=== PATIENT | female | born 1995 | race Caucasian/White ===

== ENCOUNTER 2020-08-06 22:59 | Emergency (ER) | payer MEDICAID, SELFPAY ==
[2020-08-06 23:24] VITALS: BP 115/67; PULSE 71; RESP 16; TEMP 35.8; O2SAT 100; BMI 19.7
--- NOTE | 2020-08-06 23:48 | ED.PREGNANCY ---
HPI - General Chief complaint: Vaginal Bleeding Stated complaint: BLEEDING Time Seen by Provider: 08/06/20 23:40 Source: patient Mode of arrival: ambulatory History of Present Illness HPI Narrative: 25-year-old female states recently now with vaginal bleeding. Spotting. No clots. No abdominal pain no back pain. No nausea no vomiting no dizziness no syncope history of Rh positive last normal menstrual period June 27 approximately 5 weeks and 5 days MD Complaint: vaginal bleeding Onset (ago): hour(s) ( 2 hours) Pain Consistency: constant Severity: moderate Severity scale (1-10): 3 Vaginal discharge: none Vaginal bleeding: light OB History - Current : no complications Related Data Allergies Allergy/AdvReac Type Severity Reaction Status Date / Time No Known Allergies Allergy Unknown UNKNOWN Unverified 07/20/20 16:46 [NO KNOWN ALLERGIES] Review of Systems Review of Systems: Constitutional : No Weight loss, No Fever, No Chills, No Night Sweats, No Fatigue, No Malaise ENT/Mouth : No Hearing loss, No Ear Pain, No Nasal Congestion, No Sinus Pain, No Hoarseness, No sore throat, No Rhinorrhea, No Swallowing Difficulty Eyes: No Eye Pain, No Swelling, No Redness, No Foreign Body, No Discharge, No Vision Changes Cardiovascular : No Chest Pain, No SOB, No Dyspnea on Exertion, No Orthopnea, No Edema, No Palpitations Respiratory : No Cough, No Sputum, No Wheezing, No Smoke Exposure, No Dyspnea Gastrointestinal : No Nausea, No Vomiting, No Diarrhea, No Constipation, No abdominal Pain, No Hematochezia, No Melena Genitourinary : no irregular bleeding, No Dysuria, No Urinary Frequency, No Hematuria, No Urinary Incontinence, No Urgency, No Flank Pain, No Urinary Flow Changes, No Hesitancy Musculoskeletal : No joint pain, No Myalgias, No Joint Swelling Skin : No Skin Lesions, No rash Neuro : No Weakness, No Numbness, No Paresthesias, No Loss of Consciousness, No Dizziness, No Headache Psych : No Anxiety/Panic, No Depression, No SI/HI/AH/VH, No Social Issues, Heme/Lymph: No Bruising, No Bleeding,No Lymphadenopathy Endocrine : No Polyuria, No Polydipsia, No Temperature Intolerance PMF Past Medical History Attestation statement: The following information was validated with the patient. Medical History (Updated 08/06/20 @ 23:52 by Deonte العلي DO) No known health problems Social History Social History Smoking Status: Never smoker Smoked in Last 30 Days: No Use of substances other than those prescribed or required for medical reasons: No Physical Exam Vital Signs and I&O and Narrative: Vital Signs and I&O: Vital Signs Temp 96.5 F L 08/06/20 23:24 Pulse 71 08/06/20 23:24 Resp 16 08/06/20 23:24 BP 115/67 08/06/20 23:24 Pulse Ox 100 08/06/20 23:24 Intake & Output 08/06/20 08/06/20 08/07/20 06:59 18:59 06:59 Weight 55.338 kg Body Mass Index 19.7 vital signs noted Const: Other: Appearance: Alert. Oriented X3. No acute distress. Eyes: Pupils equal, round and reactive to light. ENT: Pharynx normal. Neck: Normal inspection. Neck supple. CVS: Normal heart rate and rhythm. Pulses normal. Respiratory: No respiratory distress. Breath sounds normal. Abdomen: Soft and nontender. no mass, no lesions no peritonitis Skin: Skin warm and dry. Normal skin color. Normal skin turgor. Extremities: No lower extremity edema. No lower extremity edema. Neuro: Oriented X 3. No motor deficit. No sensory deficit. pelvic exam deferred secondary to ultrasound General: cooperative and healthy appearing Course Course Hospital Course: differential diagnosis includes ectopic UTI normal threatened
--- NOTE | 2020-08-07 | US_ITS ---
EXAMINATION: ULTRASOUND FIRST TRIMESTER CLINICAL INFORMATION: Vaginal bleeding. .. COMPARISON: None. TECHNIQUE: Transabdominal and transvaginal imaging of the pelvis was performed. Transvaginal imaging was performed for further evaluation of the endometrium and adnexa. FINDINGS: A normal gravid uterus is identified. A gestational sac is identified with a very small pole measuring between 1 and 2 mm. Dating is neither accurate at this age. This is concordant with the age by dates of 5 weeks 6 days for an KRISTAL of 04/03/2020. A normal heart rate is not identified. Both ovaries are of normal size and echogenicity. The right measures 2.3 x 1.2 x 1.3 cm. The left measures 3.4 x 1.9 x 2.1 cm. This measurement includes an approximately 10 mm cyst. Left adnexal vasculature is prominent. There is a small amount of pelvic free fluid. IMPRESSION: Intrauterine gestational sac identified. There is a very small pole identified within the gestational sac measuring between 1 and 2 mm. dating the ultrasound is not accurate at this early age. A heart beat is not identified, though one is not necessarily present and demonstrable the ultrasound at this early age. Continued follow-up is warranted.
[2020-08-07] MEDS: 0.9 % Sodium Chloride 1,000 ML 999 ML IVCONT (00:05)
[2020-08-07 00:07] VITALS: BP 99/55; PULSE 69; RESP 18; TEMP 37.1; O2SAT 100
[2020-08-07 00:16] LABS: MANUAL DIFF FLAG NO
[2020-08-07 00:18] LABS: Basophils Absolute Auto 0.1 X10*3/uL (0.0-0.2); Eosinophils Absolute Auto 0.4 X10*3/uL (0.0-0.4); Eosinophils Percent Auto 5.6 % (0-4); Hematocrit 34.9 % (37-47); Hemoglobin 11.7 g/dl (12.0-16.0); Imm Gran Abs Auto 0.01 X10*3/uL (0.00-0.03); Imm Gran Pct Auto 0.2 % (0.0-0.4); Lymphocytes Absolute Auto 3.4 X10*3/uL (1.2-4.9); Lymphocytes Percent Auto 53.8 % (20-40); Mean Corpuscular HGB Conc 33.5 g/dl (31.0-35.0); Mean Corpuscular Volume 92.6 fL (80-98); Mean Platelet Volume 9.9 fL (9.4-12.3); Monocytes Absolute Auto 0.4 X10*3/uL (0.1-1.2); Monocytes Percent Auto 6.7 % (2-11); Neutrophils Absolute Auto 2.1 X10*3/uL (2.0-8.3); Neutrophils Percent Auto 32.7 % (45-73); Platelet Count 194 X10*3/uL (160-400); Red Blood Count 3.77 X10*6/uL (4.20-5.50); Red Cell Distribution Width 12.2 % (11.0-16.0); White Blood Count 6.3 X10*3/uL (4.8-10.8)
[2020-08-07 00:22] LABS: Glucose Urine UA NEG (NEG); Leukocyte Esterase Urine NEG (NEG); Nitrite Urine NEG (NEG); PH 5.5 (5.0-8.0); Specific Gravity - Urine 1.025 (1.005-1.025); Urine Blood 2+ (NEG); Urine Ketones NEG (NEG); Urine Protein NEG (NEG-TRACE)
[2020-08-07 00:23] LABS: Appearance Urine CLEAR; Color Urine YELLOW
[2020-08-07 00:24] LABS: UPreg QC Valid YES; Urine Pregnancy POSITIVE (NEGATIVE)
[2020-08-07 00:42] LABS: Mucus Urine 2+ /LPF; RBC Urine 0 /HPF (0); Squamous Epithelial Cell Urine 2+ /LPF; WBC Urine 0-2 /HPF (0-4)
[2020-08-07 01:23] LABS: Anion Gap 9 (12-20); Blood Urea Nitrogen 9 mg/dL (9-16); Calcium 7.8 mg/dL (8.4-10.2); Carbon Dioxide 22 mmol/L (22-29); Chloride 108 mmol/L (96-108); Creatinine Clr Calc Pharmacy 115.5; Estimated Glomerular Filt Rate > 60; Glucose Random 82 mg/dL (60-115); Potassium 3.9 mmol/l (3.3-5.1); Sodium 135 mmol/L (135-145)
[2020-08-07 01:51] LABS: HCG Quantitative 29353 mIU/mL
[2020-08-07 02:00] VITALS: BP 102/51; PULSE 66; RESP 18; O2SAT 100
== END 2020-08-07 02:18 | disposition home or self-care (01) ==
PROVIDERS: Emergency Provider Emergency Medicine
DX: O20.9 Hemorrhage in early pregnancy, unspecified (principal); Z3A.01 Less than 8 weeks gestation of pregnancy
CPT/HCPCS: 36415; 76801; 76817; 80048; 81001; 81025; 84702; 85025; 96360; 99284

== ENCOUNTER 2020-08-13 09:42 | Emergency (ER) | payer MEDICAID, SELFPAY ==
[2020-08-13 09:56] VITALS: BP 105/65; PULSE 78; RESP 14; TEMP 36.6; O2SAT 99; BMI 19.8
--- NOTE | 2020-08-13 10:15 | ED.FEMALEGU ---
HPI - Female Genitourinary General Chief complaint: Vaginal Bleeding Stated complaint: vaginal bleeding 6 weeks Time Seen by Provider: 08/13/20 10:05 Source: patient Mode of arrival: ambulatory Limitations: no limitations History of Present Illness HPI Narrative: this is a 25 years old female who presented to the Emergency Department with a chief complaint of vaginal bleeding, she is a she has a intrauterine by ultrasound MD elicited complaint: vaginal bleeding Onset (ago): day(s) (1) Location of symptoms: vaginal Severity: moderate Quality of pain: cramping Consistency: constant Exacerbating factors: none Relieving factors: none Treatment prior to arrival: none Sexual activity: Yes Patient : Yes Related Data : 2 Para: 1 Allergies Allergy/AdvReac Type Severity Reaction Status Date / Time No Known Allergies Allergy Unknown UNKNOWN Unverified 07/20/20 16:46 [NO KNOWN ALLERGIES] Review of Systems Review of Systems: Yes all other systems are reviewed and are negative PMFSH Past Medical History Medical History Hypothyroid No known health problems : 2 Para: 1 Social History Social History Alcohol intake: never Smoking Status: Never smoker Use of substances other than those prescribed or required for medical reasons: No Advance Directives: No Advance Directives Information Provided: No Physical Exam Vital Signs: Vital Signs: Vital Signs Temp Pulse Resp BP Pulse Ox 08/13/20 11:21 72 16 94/61 99 08/13/20 09:56 98 F 78 14 105/65 99 Body Mass Index 19.8 Const: General: cooperative and healthy appearing HENMT: Other: within normal limits Neck: Neck: Yes normal visual inspection Chest: Chest palpation & inspection: normal inspection of the chest and normal palpation of entire chest wall Resp: Effort & Inspection: normal respiratory effort Cardio: Jugular venous distension: no JVD and JVD Palpation: normal PMI Rate: regular rate GI: Inspection: Yes normal to inspection Percussion: Yes normal to percussion Skin: General skin exam: no rashes or lesions noted Course Course Course Narrative: ultrasound showed alive IUP she is Rh positive okay to d/c home MDM - Female Genitourinary Lab Data Result diagrams: 08/13/20 10:21 08/13/20 10:21 Labs: Lab Results 08/13/20 08/13/20 Range/Units 10:21 10:21 WBC 5.0 (4.8-10.8) X10*3/uL RBC 3.67 L (4.20-5.50) X10*6/uL Hgb 11.3 L (12.0-16.0) g/dl Hct 34.0 L (37-47) % MCV 92.6 (80-98) fL MCH 30.8 (27.0-33.0) pg MCHC 33.2 (31.0-35.0) g/dl RDW 12.1 (11.0-16.0) % Plt Count 191 (160-400) X10*3/uL MPV 9.4 (9.4-12.3) fL Immature Gran % (Auto) 0.2 (0.0-0.4) % Neut % (Auto) 45.1 (45-73) % Lymph % (Auto) 43.1 H (20-40) % [place] % (Auto) 6.0 (2-11) % Eos % (Auto) 4.2 H (0-4) % Baso % (Auto) 1.4 (0-2) % Lymph # (Auto) 2.1 (1.2-4.9) X10*3/uL [place] # (Auto) 0.3 (0.1-1.2) X10*3/uL Eos # (Auto) 0.2 (0.0-0.4) X10*3/uL Baso # (Auto) 0.1 (0.0-0.2) X10*3/uL Abs Immat Gran (auto) 0.01 (0.00-0.03) X10*3/uL Absolute Neuts (auto) 2.2 (2.0-8.3) X10*3/uL Absolute Nucleated RBC 0.000 (0.0-0.012) X10*3/uL Nucleated RBC % (auto) 0.0 (0.0-0.2) /100WBC Sodium 136 (135-145) mmol/L Potassium 4.0 (3.3-5.1) mmol/l Chloride 105 (96-108) mmol/L Carbon Dioxide 24 (22-29) mmol/L Anion Gap 11 L (12-20) BUN 11 (9-16) mg/dL Creatinine 0.68 (0.5-1.4) mg/dL Estim Creat Clear Calc 111.4 Estimated GFR > 60 Random Glucose 75 (60-115) mg/dL Calcium 8.8 (8.4-10.2) mg/dL Total Bilirubin 2.3 H (0.0-1.0) mg/dL AST 12 (5-31) U/L ALT 12 (0-31) U/L Alkaline Phosphatase 66 (39-117) U/L Total Protein 6.4 L (6.5-8.0) g/dL Albumin 4.2 (3.5-5.0) g/dL Beta HCG, Quant [id number] mIU/mL Imaging Data ultrasound : Attestation: I personally reviewed and interpreted this imaging study as follows: Radiologist's impression: s was performed using a transvaginal transducer. FINDINGS: The uterus is retroflexed. No evidence of uterine mass. Within the endometrial cavity, there is a well-formed gestational sac containing a single pole and normal 0.3 cm diameter yolk sac. No subchorionic hemorrhage. The pole has a crown-rump length of 0.73 cm, corresponding to an estimated gestational age of 6 weeks, 5 days. The heart rate is 127 bpm. The ultrasound determined estimated date of delivery is 04/03/2021. The right ovary is not identified. The left ovary has normal size and echotexture. It measures 3.5 x 2.3 x 1.4 cm. No ovarian mass or torsion. No pelvic free fluid. IMPRESSION: No acute abnormalities. Single viable intrauterine gestation is observed. The estimated gestational age is 6 weeks, 5 days. Discharge Plan Discharge Clinical Impression: Threatened Patient Disposition: Home, Self-Care Instructions: Threatened Miscarriage (ED) Additional Instructions: Please follow-up with your OBGYN provider call Tomorrow to make an appointment, return if he worse Referrals: [facility] [Primary Care Provider] - 3 days Stand Alone Forms: Work/School Release
[2020-08-13 10:26] LABS: Basophils Absolute Auto 0.1 X10*3/uL (0.0-0.2); Basophils Percent Auto 1.4 % (0-2); Eosinophils Absolute Auto 0.2 X10*3/uL (0.0-0.4); Eosinophils Percent Auto 4.2 % (0-4); Hemoglobin 11.3 g/dl (12.0-16.0); Imm Gran Abs Auto 0.01 X10*3/uL (0.00-0.03); Imm Gran Pct Auto 0.2 % (0.0-0.4); Lymphocytes Absolute Auto 2.1 X10*3/uL (1.2-4.9); Lymphocytes Percent Auto 43.1 % (20-40); MANUAL DIFF FLAG NO; Mean Corpuscular HGB Conc 33.2 g/dl (31.0-35.0); Mean Corpuscular Hemoglobin 30.8 pg (27.0-33.0); Mean Corpuscular Volume 92.6 fL (80-98); Mean Platelet Volume 9.4 fL (9.4-12.3); Monocytes Absolute Auto 0.3 X10*3/uL (0.1-1.2); Neutrophils Absolute Auto 2.2 X10*3/uL (2.0-8.3); Neutrophils Percent Auto 45.1 % (45-73); Platelet Count 191 X10*3/uL (160-400); Red Blood Count 3.67 X10*6/uL (4.20-5.50); Red Cell Distribution Width 12.1 % (11.0-16.0)
--- NOTE | 2020-08-13 10:34 | US_ITS ---
EXAMINATION: US OB LESS THAN 14 WEEKS FETUS CLINICAL INFORMATION: Vaginal bleeding. COMPARISON: Pelvic ultrasound from 08/07/2020. TECHNIQUE: Sonographic imaging of the pelvis was performed using a transvaginal transducer. FINDINGS: The uterus is retroflexed. No evidence of uterine mass. Within the endometrial cavity, there is a well-formed gestational sac containing a single pole and normal 0.3 cm diameter yolk sac. No subchorionic hemorrhage. The pole has a crown-rump length of 0.73 cm, corresponding to an estimated gestational age of 6 weeks, 5 days. The heart rate is 127 bpm. The ultrasound determined estimated date of delivery is 04/03/2021. The right ovary is not identified. The left ovary has normal size and echotexture. It measures 3.5 x 2.3 x 1.4 cm. No ovarian mass or torsion. No pelvic free fluid. IMPRESSION: No acute abnormalities. Single viable intrauterine gestation is observed. The estimated gestational age is 6 weeks, 5 days.
[2020-08-13 10:58] LABS: Alanine Aminotransferase 12 U/L (0-31); Albumin Level 4.2 g/dL (3.5-5.0); Alkaline Phosphatase 66 U/L (39-117); Aspartate Amino Transferase 12 U/L (5-31); Bilirubin Total 2.3 mg/dL (0.0-1.0); Blood Urea Nitrogen 11 mg/dL (9-16); Calcium 8.8 mg/dL (8.4-10.2); Creatinine Clr Calc Pharmacy 111.4; Estimated Glomerular Filt Rate > 60; Glucose Random 75 mg/dL (60-115); Total Protein 6.4 g/dL (6.5-8.0)
[2020-08-13 11:11] LABS: Anion Gap 11 (12-20); Carbon Dioxide 24 mmol/L (22-29); Chloride 105 mmol/L (96-108); Sodium 136 mmol/L (135-145)
[2020-08-13 11:21] VITALS: BP 94/61; PULSE 72; RESP 16; O2SAT 99
== END 2020-08-13 12:04 | disposition home or self-care (01) ==
PROVIDERS: Emergency Provider Emergency Medicine
DX: O20.0 Threatened abortion (principal); Z3A.01 Less than 8 weeks gestation of pregnancy
CPT/HCPCS: 36415; 76801; 80053; 84702; 85025; 99283; 99284

== ENCOUNTER 2020-10-02 12:49 | Emergency (ER) | payer MEDICAID, SELFPAY ==
[2020-10-02 12:58] VITALS: BP 119/62; PULSE 88; PULSE 92; RESP 16; TEMP 37; O2SAT 97; O2SAT 99; BMI 20.3
--- NOTE | 2020-10-02 13:12 | ED.FEMALEGU ---
HPI - Female Genitourinary General Chief complaint: Abdominal Pain Stated complaint: abd pain x1day,14wks ,covid+ Time Seen by Provider: 10/02/20 13:00 Source: patient Mode of arrival: ambulatory Limitations: no limitations History of Present Illness HPI Narrative: patient 14 weeks A1 noticed pain in lower abdomen since yesterday no nausea no vomiting no vaginal bleed patient was tested COVID positive last week denies any shortness of breath or cough. Patient denied any urinary symptoms patient had ultrasound done last months which was IUP Related Data Allergies Allergy/AdvReac Type Severity Reaction Status Date / Time No Known Allergies Allergy Unknown UNKNOWN Unverified 07/20/20 16:46 [NO KNOWN ALLERGIES] Review of Systems Review of Systems: REVIEW OF SYSTEMS: Pertinent positives and negatives are stated above in the history. GEN: no fevers, chills, fatigue HEENT: no nasal congestion, sore throat, ear pain NEURO: no headache, dizziness, focal weakness PULM: no cough, shortness of breath CV: no chest pain, palpitations, LE edema ABD: no nausea, vomiting, diarrhea : no dysuria, urgency, frequency SKIN: no rash ROS otherwise negative x 10 PMFSH Past Medical History Medical History Hypothyroid No known health problems Social History Social History Alcohol intake: never Smoking Status: Never smoker Use of substances other than those prescribed or required for medical reasons: No Advance Directives: No Advance Directives Information Provided: No Physical Exam Vital Signs: Vital Signs: Last Vital Signs Temp 98.6 F 10/02/20 12:58 Pulse 94 10/02/20 15:41 Resp 18 10/02/20 15:41 BP 147/66 H 10/02/20 15:41 Pulse Ox 94 10/02/20 15:41 Body Mass Index 20.3 Appearance: Alert. Oriented X3. No acute distress. Eyes: Pupils equal, round and reactive to light. ENT: Pharynx normal. Neck: Normal inspection. Neck supple. CVS: Normal heart rate and rhythm. Pulses normal. Respiratory: No respiratory distress. Breath sounds normal. Abdomen: Soft and mild tenderness suprapubic area no rebound tenderness or guarding Skin: Skin warm and dry. Normal skin color. Normal skin turgor. Extremities: No lower extremity edema. Good range of movement Neuro: Oriented X 3. No motor deficit. No sensory deficit. MDM - Female Genitourinary MDM Narrative Medical decision making narrative: patient with lower abdominal pain 14 weeks ultrasound showed slight subchorionic bleed no vaginal bleeding at this time patient advised to follow-up with OBG Medical Records Attestation: I reviewed the patient's medical records. Lab Data Attestation: I reviewed the patient's lab results. Result diagrams: 10/02/20 14:05 10/02/20 14:05 Labs: Lab Results 10/02/20 10/02/20 10/02/20 Range/Units 13:38 14:05 14:05 WBC 2.6 L (4.8-10.8) X10*3/uL RBC 3.14 L (4.20-5.50) X10*6/uL Hgb 9.9 L (12.0-16.0) g/dl Hct 29.1 L (37-47) % MCV 92.7 (80-98) fL MCH 31.5 (27.0-33.0) pg MCHC 34.0 (31.0-35.0) g/dl RDW 12.9 (11.0-16.0) % Plt Count 138 L D (160-400) X10*3/uL MPV 9.0 L (9.4-12.3) fL Immature Gran % (Auto) 1.1 H (0.0-0.4) % Neut % (Auto) 50.9 (45-73) % Lymph % (Auto) 35.0 (20-40) % [place] % (Auto) 10.3 (2-11) % Eos % (Auto) 2.3 (0-4) % Baso % (Auto) 0.4 (0-2) % Lymph # (Auto) 0.9 L (1.2-4.9) X10*3/uL [place] # (Auto) 0.3 (0.1-1.2) X10*3/uL Eos # (Auto) 0.1 (0.0-0.4) X10*3/uL Baso # (Auto) 0.0 (0.0-0.2) X10*3/uL Abs Immat Gran (auto) 0.03 (0.00-0.03) X10*3/uL Absolute Neuts (auto) 1.3 L (2.0-8.3) X10*3/uL Absolute Nucleated RBC 0.000 (0.0-0.012) X10*3/uL Nucleated RBC % (auto) 0.0 (0.0-0.2) /100WBC Sodium 134 L (135-145) mmol/L Potassium 3.6 (3.3-5.1) mmol/l Chloride 106 (96-108) mmol/L Carbon Dioxide 22 (22-29) mmol/L Anion Gap 10 L (12-20) BUN 12 (9-16) mg/dL Creatinine 0.65 (0.5-1.4) mg/dL Estim Creat Clear Calc 119.4 Estimated GFR > 60 Random Glucose 69 (60-115) mg/dL Calcium 7.8 L D (8.4-10.2) mg/dL Urine Color YELLOW Urine Appearance HAZY Urine pH 7.0 (5.0-8.0) Ur Specific [place] 1.025 (1.005-1.025) Urine Protein NEG (NEG-TRACE) MG/DL Urine Glucose (UA) NEG (NEG) MG/DL Urine Ketones >=80 (NEG) MG/DL Urine Blood NEG (NEG) Urine Nitrite NEG (NEG) Ur Leukocyte Esterase NEG (NEG) Discharge Plan Discharge Clinical Impression: , spontaneous threatened Patient Disposition: Home, Self-Care Instructions: Threatened Miscarriage (ED) Additional Instructions: drink plenty of fluids rest at home. Report to the ER/security guards dispatcher if vaginal bleed or increased pain
--- NOTE | 2020-10-02 13:13 | US_ITS ---
EXAMINATION: ULTRASOUND OB LESS THAN 14 WEEKS. CLINICAL INFORMATION: Lower abdominal pain. Rule out subchronic bleed COMPARISON: None TECHNIQUE: Pelvic OB ultrasound was performed. FINDINGS: There is a live intrauterine fetus, yolk sac and a solitary gestational sac noted. There is motion noted with a heart rate of 152 bpm. There is a heterogenous echogenic area to the left of placenta along the upper segment of the uterus. No color Doppler was performed.. Differential diagnosis includes subchorionic hematoma or a placental castillo. The cervix is long and closed. Right ovary measures 2.4 x 1.0 x 1.5 cm and appears unremarkable. Left ovary measures 2.7 x 2.4 x 2.5 cm and appears unremarkable There is no free fluid in cul-de-sac. US/US OB <= 14 weeks fetus IMPRESSION: Small subchorionic hematoma or placental leg adjacent to the left margin of placenta is suspected. Usually patients with subchorionic bleed have some kind of vaginal bleeding. Differential diagnosis may include placental castillo.. Recommend follow-up ultrasound in 1 week. Fetus and ovaries are unremarkable.
[2020-10-02] MEDS: 0.9 % Sodium Chloride 1,000 ML 999 ML IVCONT (13:39)
--- NOTE | 2020-10-02 13:40 | PC.NURSE ---
ultrasound done at bedside.
[2020-10-02 14:12] LABS: Glucose Urine UA NEG (NEG); Leukocyte Esterase Urine NEG (NEG); Nitrite Urine NEG (NEG); Specific Gravity - Urine 1.025 (1.005-1.025); Urine Blood NEG (NEG); Urine Ketones >=80 MG/DL (NEG); Urine Protein NEG (NEG-TRACE)
[2020-10-02 14:13] LABS: Basophils Percent Auto 0.4 % (0-2); Eosinophils Absolute Auto 0.1 X10*3/uL (0.0-0.4); Eosinophils Percent Auto 2.3 % (0-4); Hematocrit 29.1 % (37-47); Hemoglobin 9.9 g/dl (12.0-16.0); Imm Gran Abs Auto 0.03 X10*3/uL (0.00-0.03); Imm Gran Pct Auto 1.1 % (0.0-0.4); Lymphocytes Absolute Auto 0.9 X10*3/uL (1.2-4.9); MANUAL DIFF FLAG NO; Mean Corpuscular Hemoglobin 31.5 pg (27.0-33.0); Mean Corpuscular Volume 92.7 fL (80-98); Monocytes Absolute Auto 0.3 X10*3/uL (0.1-1.2); Monocytes Percent Auto 10.3 % (2-11); Neutrophils Absolute Auto 1.3 X10*3/uL (2.0-8.3); Neutrophils Percent Auto 50.9 % (45-73); Platelet Count 138 X10*3/uL (160-400); Red Blood Count 3.14 X10*6/uL (4.20-5.50); Red Cell Distribution Width 12.9 % (11.0-16.0); White Blood Count 2.6 X10*3/uL (4.8-10.8)
[2020-10-02 14:14] LABS: Appearance Urine HAZY; Color Urine YELLOW
[2020-10-02 14:39] LABS: Anion Gap 10 (12-20); Blood Urea Nitrogen 12 mg/dL (9-16); Calcium 7.8 mg/dL (8.4-10.2); Carbon Dioxide 22 mmol/L (22-29); Chloride 106 mmol/L (96-108); Creatinine Clr Calc Pharmacy 119.4; Estimated Glomerular Filt Rate > 60; Glucose Random 69 mg/dL (60-115); Potassium 3.6 mmol/l (3.3-5.1); Sodium 134 mmol/L (135-145)
[2020-10-02 15:41] VITALS: BP 147/66; PULSE 94; RESP 18; O2SAT 94
== END 2020-10-02 15:51 | disposition home or self-care (01) ==
PROVIDERS: Emergency Provider Internal Medicine; PCP Internal Medicine
DX: O20.0 Threatened abortion (principal); U07.1 COVID-19; Z3A.14 14 weeks gestation of pregnancy
CPT/HCPCS: 36415; 76801; 80048; 81003; 85025; 96360; 99284

== ENCOUNTER 2020-10-04 14:25 | Outpatient (REF) | payer MEDICAID, SELFPAY | END 2020-10-04 14:26 | disposition home or self-care (01) | LOC: HO.LAB 14:25 | PROVIDERS: Visit Provider Internal Medicine | DX: Z20.828 Contact with and (suspected) exposure to other viral communicable diseases (principal) | CPT/HCPCS: C9803; U0003 ==

== ENCOUNTER 2021-01-02 14:58 | Outpatient (REF) | payer MEDICAID, SELFPAY ==
[2021-01-02 16:30] LABS: Thyroid Stimulating Hormone 5.11 uIU/mL (0.32-4.0); Vitamin D 25-OH Total 18.6 ng/mL (>30)
== END 2021-01-02 14:59 | disposition home or self-care (01) ==
LOC: HO.LAB 14:58
PROVIDERS: Visit Provider Internal Medicine Endocrinology, Diabetes & Metabolism
DX: E03.8 Other specified hypothyroidism (principal); E55.9 Vitamin D deficiency, unspecified
CPT/HCPCS: 36415; 82306; 84439; 84443

== ENCOUNTER → 2021-03-13 14:12 | Outpatient (BNVA) | payer MEDICAID, SELFPAY | PROVIDERS: PCP Internal Medicine; Visit Provider Internal Medicine Endocrinology, Diabetes & Metabolism | DX: E03.8 Other specified hypothyroidism (principal); E06.3 Autoimmune thyroiditis; E55.9 Vitamin D deficiency, unspecified | CPT/HCPCS: 99212 ==

== ENCOUNTER 2021-03-14 10:21 | Outpatient (REF) | payer MEDICAID, SELFPAY ==
[2021-03-14 12:38] LABS: Free T4 (Free Thyroxine) 0.87 ng/dL (0.71-1.85); Thyroid Stimulating Hormone 3.41 uIU/mL (0.32-4.0)
[2021-03-19 08:17] LABS: FT4 by Equilib. Dialysis 1.1 ng/dL (0.9-2.2)
== END 2021-03-14 10:22 | disposition home or self-care (01) ==
LOC: HO.LAB 10:21
PROVIDERS: Visit Provider Internal Medicine Endocrinology, Diabetes & Metabolism
DX: E03.8 Other specified hypothyroidism (principal); E06.3 Autoimmune thyroiditis
CPT/HCPCS: 36415; 84439; 84443

== ENCOUNTER 2021-05-17 10:22 | Outpatient (REF) | payer MEDICAID, SELFPAY ==
[2021-05-17 14:16] LABS: Free T4 (Free Thyroxine) 1.11 ng/dL (0.71-1.85); Thyroid Stimulating Hormone 0.36 uIU/mL (0.32-4.0)
== END 2021-05-17 10:23 | disposition home or self-care (01) ==
LOC: HO.10HDL 10:22
PROVIDERS: PCP Internal Medicine; Visit Provider Internal Medicine Endocrinology, Diabetes & Metabolism
DX: E03.8 Other specified hypothyroidism (principal); E06.3 Autoimmune thyroiditis; E55.9 Vitamin D deficiency, unspecified; Z79.899 Other long term (current) drug therapy
CPT/HCPCS: 36415; 84439; 84443; 99212

== ENCOUNTER → 2021-12-19 12:35 | Outpatient (BNVA) | payer MEDICAID, SELFPAY | PROVIDERS: PCP Internal Medicine; Visit Provider Nurse Practitioner Gerontology | DX: E03.8 Other specified hypothyroidism (principal); E06.3 Autoimmune thyroiditis; E55.9 Vitamin D deficiency, unspecified | CPT/HCPCS: 99212 ==

== ENCOUNTER 2022-01-01 15:43 | Outpatient (REF) | payer MEDICAID, SELFPAY ==
[2022-01-01 16:57] LABS: Free T4 (Free Thyroxine) 1.04 ng/dL (0.71-1.85); Thyroid Stimulating Hormone 8.48 uIU/mL (0.32-4.0); Vitamin D 25-OH Total 19.5 ng/mL (>30)
== END 2022-01-01 15:44 | disposition home or self-care (01) ==
LOC: HO.LAB 15:43
PROVIDERS: Visit Provider Nurse Practitioner Gerontology
DX: E55.9 Vitamin D deficiency, unspecified (principal); E03.8 Other specified hypothyroidism; E06.3 Autoimmune thyroiditis
CPT/HCPCS: 36415; 82306; 84439; 84443

== ENCOUNTER 2022-01-31 15:00 | Outpatient (RCR) | payer MEDICAID, SELFPAY | END 2022-03-07 15:42 | disposition home or self-care (01) | LOC: HO.PT 15:00 | PROVIDERS: PCP Internal Medicine; Visit Provider Nurse Practitioner Primary Care | DX: M54.9 Dorsalgia, unspecified (principal) | CPT/HCPCS: 97110; 97112; 97140; 97161 ==

== ENCOUNTER 2022-05-20 14:47 | Outpatient (REF) | payer MEDICAID, SELFPAY ==
--- NOTE | ~2022-05-20 | XR_ITS ---
EXAMINATION: XR LUMBOSACRAL SPINE WITH OBLIQUES CLINICAL INFORMATION: Lumbago with bilateral sciatica. COMPARISON: None TECHNIQUE: AP, both oblique, and lateral views of the lumbar spine. Lateral view of the lumbosacral junction. FINDINGS: There are 4 nonrib-bearing lumbar vertebra with sacralization of L5. Joint spaces are maintained. Pedicles intact. Mild scoliosis convex left is present which may be positional in nature. Sacroiliac joints unremarkable. Psoas margins intact. XR/XR lumbar spine 4V min IMPRESSION: Sacralization of L5. No evidence of acute fracture, spondylolisthesis, or spondylolysis.
== END 2022-05-20 14:48 | disposition home or self-care (01) ==
LOC: HO.XRAY 14:47
PROVIDERS: PCP Internal Medicine; Visit Provider Internal Medicine
DX: M54.41 Lumbago with sciatica, right side (principal); M54.42 Lumbago with sciatica, left side
CPT/HCPCS: 72110

== ENCOUNTER 2023-03-07 09:03 | Outpatient (REF) | payer MEDICAID, SELFPAY ==
--- NOTE | ~2023-03-07 | US_ITS ---
EXAMINATION: US ABDOMEN COMPLETE CLINICAL INFORMATION: Diffuse, sharp abdominal pain. COMPARISON: CT abdomen and pelvis 01/23/2013. TECHNIQUE: Real-time imaging of the abdominal viscera. FINDINGS: PANCREAS: Normal. ABDOMINAL AORTA: The proximal, mid, and distal segments are normal in caliber. INFERIOR VENA CAVA: Visualized portions are normal. LIVER: Normal. The liver is normal in size. The liver contour is normal. Parenchymal echogenicity is normal. No focal hepatic lesion. There is no intrahepatic biliary duct dilatation seen. GALLBLADDER: Normal. The gallbladder is physiologically distended without evidence of stones, sludge, polyps, wall thickening or pericholecystic fluid. COMMON BILE DUCT: Normal in caliber measuring 0.3 cm in diameter. RIGHT KIDNEY: Normal. No hydronephrosis. No renal calculi or focal parenchymal lesions. The kidney measures 11.5 cm in maximum dimension. LEFT KIDNEY: Normal. No hydronephrosis. No renal calculi or focal parenchymal lesions. The kidney measures 11.3 cm in maximum dimension. SPLEEN: Normal. The spleen measures 10.5 cm in maximum dimension. FREE FLUID: None. US/US abdomen complete IMPRESSION: Normal abdominal ultrasound.
== END 2023-03-07 09:04 | disposition home or self-care (01) ==
LOC: HO.HMGCX 09:03
PROVIDERS: PCP Internal Medicine; Visit Provider Family Medicine
DX: R10.84 Generalized abdominal pain (principal)
CPT/HCPCS: 76700

== ENCOUNTER 2024-02-05 13:26 | Outpatient (REF) | payer MEDICAID, SELFPAY ==
--- NOTE | ~2024-02-05 | US_ITS ---
EXAMINATION: US PELVIS CLINICAL INFORMATION: 28-year-old female with right pelvic pain, patient is not base of urinary tests. COMPARISON: None available. LMP middle of January 2024 TECHNIQUE: Ultrasound of the pelvis is performed using both transabdominal and transvaginal transducers along with Doppler. Transvaginal imaging is performed due to inadequate visualization transabdominally. FINDINGS: Uterus: The uterus is retroflexed, retroverted and measures 6.7 x 3.4 x 5.9 cm. The double wall endometrial thickness is 0.2 mm. The uterus is smooth in contour and has normal myometrial echogenicity. No visible fibroid. Adnexa: Both ovaries are visualized. There is normal color flow to the adnexa. There is no ovarian torsion. There is no pelvic ascites or fluid collection. There is bilateral pelvic congestion with prominent vessels along the uterus. Right ovary measures 2.4 x 1.5 x 1.7 cm. The volume measured 3.3 mL Left ovary measures 3.7 x 2.1 x 2.5 cm. The volume measured 10.3 mL US/US pelvic and transvaginal IMPRESSION: Pelvic congestion.
== END 2024-02-05 13:27 | disposition home or self-care (01) ==
LOC: HO.US 13:26
PROVIDERS: PCP Internal Medicine; Visit Provider Family Medicine
DX: R10.2 Pelvic and perineal pain (principal)
CPT/HCPCS: 76830; 76856

== ENCOUNTER 2024-03-15 10:17 | Outpatient (REF) | payer MEDICAID, SELFPAY ==
[2024-03-15 11:21] LABS: MANUAL DIFF FLAG NO
[2024-03-15 11:49] LABS: Basophils Absolute Auto 0.1 X10*3/uL (0.0-0.2); Basophils Percent Auto 1.7 % (0-2); Eosinophils Absolute Auto 0.4 X10*3/uL (0.0-0.4); Eosinophils Percent Auto 7.3 % (0-4); Hematocrit 40.6 % (37.0-47.0); Hemoglobin 13.4 g/dl (12.0-16.0); Imm Gran Abs Auto 0.03 X10*3/uL (0.00-0.03); Imm Gran Pct Auto 0.6 % (0.0-0.4); Lymphocytes Absolute Auto 2.4 X10*3/uL (1.2-4.9); Lymphocytes Percent Auto 50.8 % (20-40); Mean Corpuscular Hemoglobin 30.5 pg (27.0-33.0); Mean Corpuscular Volume 92.5 fL (80.0-98.0); Mean Platelet Volume 10.5 fL (9.4-12.3); Monocytes Absolute Auto 0.3 X10*3/uL (0.1-1.2); Monocytes Percent Auto 6.7 % (2-11); Neutrophils Absolute Auto 1.6 x10*3/uL (2.0-8.3); Neutrophils Percent Auto 32.9 % (45-73); Platelet Count 271 X10*3/uL (160-400); Red Blood Count 4.39 X10*6/uL (4.20-5.50); Red Cell Distribution Width 12.1 % (11.0-16.0); White Blood Count 4.8 X10*3/uL (4.8-10.8)
[2024-03-15 12:19] LABS: Alanine Aminotransferase 10 U/L (0-31); Albumin Level 4.5 g/dL (3.5-5.0); Alkaline Phosphatase 75 U/L (39-117); Anion Gap 13 (12-20); Aspartate Amino Transferase 15 U/L (5-31); Bilirubin Direct 0.5 mg/dL (0.0-0.5); Bilirubin Total 1.7 mg/dL (0.0-1.0); Blood Urea Nitrogen 12 mg/dL (9-16); Calcium 9.2 mg/dL (8.4-10.2); Carbon Dioxide 26 mmol/L (22-29); Chloride 104 mmol/L (96-108); Cholesterol 161 mg/dL (<200); Estimated Glomerular Filt Rate > 60; Glucose Random 76 mg/dL (60-115); HDL Cholesterol 57 mg/dL (>40); LDL Cholesterol Calculated 96 mg/dL (<100); Potassium 4.1 mmol/L (3.3-5.1); Sodium 139 mmol/L (135-145); Total Protein 7.6 g/dL (6.5-8.0); Triglycerides 43 mg/dL (<150)
[2024-03-15 12:29] LABS: ~HepC Num1 0.16 S/CO (0.00-0.79); ~Hepatitis C Antibody Nonreactive (Nonreactive)
[2024-03-15 12:35] LABS: TSH reflex Free T4 9.84 uIU/mL (0.32-4.0)
[2024-03-15 13:18] LABS: Free T4 (Free Thyroxine) 0.64 ng/dL (0.71-1.85)
[2024-03-17 17:59] LABS: HIV RNA PCR Qn Copies Not Detected Copies/mL; HIV RNA PCR Qn Log Copies Not Detected Log cps/mL
== END 2024-03-15 10:18 | disposition home or self-care (01) ==
LOC: HO.HHCLNP 10:17
PROVIDERS: Visit Provider Internal Medicine
DX: Z00.00 Encounter for general adult medical examination without abnormal findings (principal)
CPT/HCPCS: 36415; 80048; 80061; 80076; 84439; 84443; 85025; 86803; 87536; 87900

== ENCOUNTER 2024-04-27 13:57 | Outpatient (REF) | payer MEDICAID, SELFPAY ==
[2024-04-27 17:10] LABS: TSH reflex Free T4 13.67 uIU/mL (0.32-4.0)
[2024-04-27 17:42] LABS: Free T4 (Free Thyroxine) 0.69 ng/dL (0.71-1.85)
== END 2024-04-27 13:58 | disposition home or self-care (01) ==
LOC: HO.HHCL 13:57
PROVIDERS: Visit Provider Internal Medicine
DX: E03.9 Hypothyroidism, unspecified (principal)
CPT/HCPCS: 36415; 84439; 84443

== ENCOUNTER 2024-06-14 12:23 | Outpatient (REF) | payer MEDICAID, SELFPAY ==
[2024-06-14 14:07] LABS: Free T4 (Free Thyroxine) 1.04 ng/dL (0.71-1.85); Thyroid Stimulating Hormone 3.99 uIU/mL (0.32-4.0)
== END 2024-06-14 12:24 | disposition home or self-care (01) ==
LOC: HO.HHCL 12:23
PROVIDERS: Visit Provider Internal Medicine
DX: E03.9 Hypothyroidism, unspecified (principal)
CPT/HCPCS: 36415; 84439; 84443

== ENCOUNTER 2025-03-21 10:00 | Outpatient (REF) | payer MEDICAID, SELFPAY ==
--- OUTSIDE RECORDS SUMMARY | 2025-03-21 10:27 | XMS_ITS | Encounter Summary ---
Author Organization [employer] Address [address] [place] [address] Care Team Providers Care Mandarin Chinese Teacher Name Role Phone Rea Nieves MD Primary Care Provide r Reason for Visit * Reason Onset Date Comments Chart Prep 03/18/2025 Encounter Details Date Type Department Care Team ([facility] st Contact Info) Description 03/18/2025 Telephone [facility] [address] [place], [place] [phone] Rea Nieves MD [address] [place] [address] Chart Prep Social History Tobacco Use Types Packs/Day Years Used Date Smoking Tobacco: Never Passive Smoke Exposure: Never Smokeless Tobacco: Never Alcohol Use Standard Drinks/Week Comments Never 0 (1 standard drink = 0.6 oz pur e alcohol) Depression Answer Date Recorded Patient Health Questionnaire-9 Score 0 03/15/2024 Patient Health Questionnaire-9 Score 0 03/15/2024 Last PHQ-9: Questionnaire Data Not on file 0 03/15/2024 Housing Stability Answer Date Recorded What is your housing situation today? I have sangeetha gama 08/25/[address] you li ve. Do you have problems with any of the following? None of the above 08/25/2023 Food Insecurity Answer Date Recorded Within the past 12 months, y ou worried that your food would run out before you got money to buy more: Never True 08/25/2023 Within the past 12 months,th e food you bought just didn't last and you didn't have enough money to get more: Never True Transportation Answer Date Recorded In the past 12 months, has l ack of transportation kept you from medical appts, meetings, work or from getting things needed for daily living? No 08/25/2023 Utilities Answer Date Recorded In the past 12 months, has t he electric, gas, oil or water company threatened to shut off services in your home? No 08/25/2023 Depression Answer Date Recorded Patient Health Questionnaire-2 Score 0 03/15/2024 Comments Unknown Sex and Gender Information Value Date Recorded Sex Assigned at Female 09/02/2022 10:14 AM EDT Legal Sex Female 10:14 AM EDT Gender Identity Female 09/02/2022 10:14 AM EDT Sexual Orientation Straight 09/02/2022 10 :14 AM EDT documented as of this encounter Miscellaneous Notes * Telephone Encounter - Erika Kothari MA - 03/18/2025 8:16 AM EDT Chart Prep Labs: done Images: not applicable Referrals: not applicable Vaccines due: Covid and Flu Screenings: pap smear and HPV/Cotest, HIV Screening Overdue care gaps: SBIRT, SDOH, PHQ-9, BALBIR-7, Oral health screening, Disability screen, and Tobacco documented in this encounter Plan of Treatment Not on file documented as of this encounter Visit Diagnoses Not on filedocumented in this encounter Additional Health Concerns Assessment Noted Time PHQ-9 Depression Total Score: 0 03/15/20 24 9:32 AM EDT documented as of this encounter Care Teams Mandarin Chinese Teacher Relationship Specialty Start Date End Date Rea Nieves MD [address] [place] [id number] PCP - General Family Medicine 07/15/18 documented as of this encounter
--- OUTSIDE RECORDS SUMMARY | 2025-03-21 10:27 | XMS_ITS | Encounter Summary ---
Author Organization [employer] Address [address] [place] [address] [address] [place] [address] Care Team Providers Care Knockout Worker Name Role Phone Rea Nieves MD Primary Care Provide r Encounter Details Date Type Department Care Team (Late st Contact Info) Description 06/04/2023 Abstract [facility] [address] [place], [place] [phone] Rea Nieves MD [address] [place], [place] [phone] Social History Tobacco Use Types Packs/Day Years Used Date Smoking Tobacco: Never Smokeless Tobacco: Never Depression Answer Date Recorded Patient Health Questionnaire-9 Score 0 03/13/2023 Depression Answer Date Recorded Patient Health Questionnaire-2 Score 0 03/13/2023 Comments Unknown Sex and Gender Information Value Date Recorded Sex Assigned at Female 09/02/2022 10:14 AM EDT Legal Sex Female 10:14 AM EDT Gender Identity Female 09/02/2022 10:14 AM EDT Sexual Orientation Straight 09/02/2022 10 :14 AM EDT documented as of this encounter Plan of Treatment Not on file documented as of this encounter Visit Diagnoses Not on filedocumented in this encounter Additional Health Concerns Assessment Noted Time PHQ-9 Depression Total Score: 0 03/13/20 23 10:31 AM EDT documented as of this encounter Care Teams Knockout Worker Relationship Specialty Start Date End Date Rea Nieves MD [address] [place], [place] [phone] PCP - General Family Medicine 07/15/18 documented as of this encounter
--- OUTSIDE RECORDS SUMMARY | 2025-03-21 10:27 | XMS_ITS | Encounter Summary ---
Author Organization [employer] Address [address] [facility] 7t [place] [address] Care Team Providers Care Wad Lubricator Name Role Phone Rea Nieves MD Primary Care Provide r Encounter Details Date Type Department Care Team (Latest Contact Info) Description 03/21/2025 Travel Social History Tobacco Use Types Packs/Day Years Used Date Smoking Tobacco: Never Passive Smoke Exposure: Never Smokeless Tobacco: Never Alcohol Use Standard Drinks/Week Comments Never 0 (1 standard drink = 0.6 oz pur e alcohol) Depression Answer Date Recorded Patient Health Questionnaire-9 Score 5 03/21/2025 Patient Health Questionnaire-9 Score 5 03/21/2025 Last PHQ-9: Questionnaire Data Not on file 0 03/21/2025 Housing Stability Answer Date Recorded What is your housing situation today? I am not s ure 03/21/[address] you li ve. Do you have problems with any of the following? None of the above 03/21/2025 Food Insecurity Answer Date Recorded Within the past 12 months, y ou worried that your food would run out before you got money to buy more: Never True 03/21/2025 Within the past 12 months,th e food you bought just didn't last and you didn't have enough money to get more: Never True Transportation Answer Date Recorded In the past 12 months, has l ack of transportation kept you from medical appts, meetings, work or from getting things needed for daily living? No 03/21/2025 Utilities Answer Date Recorded In the past 12 months, has t he electric, gas, oil or water company threatened to shut off services in your home? I am not sure 03/21/2025 Depression Answer Date Recorded Patient Health Questionnaire-2 Score 2 03/21/2025 Internet Access Answer Date Recorded Internet Access Q1 I am not sure 03/21/2025 Internet Access Q2 Not on file 03/21/2025 Comments Unknown Sex and Gender Information Value Date Recorded Sex Assigned at Female 09/02/2022 10:14 AM EDT Legal Sex Female 10:14 AM EDT Gender Identity Female 09/02/2022 10:14 AM EDT Sexual Orientation Straight 09/02/2022 10 :14 AM EDT documented as of this encounter Functional Status * Over the past 2 weeks, how often have you been bothered by any of the following problems? Question Answer Date of Assessment Author Patient Health Questionnaire -2 Score 2 03/21/2025 9:33 AM EDT Neo Page MA * Little interest or pleasure in doing things Answer Date of Assessment Author Several days 03/21/2025 9:33 AM EDT Neo Page MA * Feeling down, depressed, or hopeless Answer Date of Assessment Author Several days 03/21/2025 9:33 AM EDT Neo Page MA * Trouble falling or staying asleep, or sleeping too much Answer Date of Assessment Author Several days 03/21/2025 9:33 AM EDT Neo Page MA * Feeling tired or having little energy Answer Date of Assessment Author Several days 03/21/2025 9:33 AM EDT Neo Page MA * Poor appetite or overeating Answer Date of Assessment Author Several days 03/21/2025 9:33 AM EDT Neo Page MA * Feeling bad about yourself - or that you are a failure or have let yourself or your family down Answer Date of Assessment Author Not at all 03/21/2025 9:33 AM EDT Neo Page MA * Trouble concentrating on things, such as reading the newspaper or watching television Answer Date of Assessment Author Not at all 03/21/2025 9:33 AM EDT Neo Page MA * Moving or speaking so slowly that other people could have noticed? Or the opposite - being so fidgety or restless that you have been moving around a lot more than usual. Answer Date of Assessment Author Not at all 03/21/2025 9:33 AM JOHANNAT Neo Page MA * Thoughts that you would be better off or hurting yourself in some way Answer Date of Assessment Author Not at all 03/21/2025 9:33 AM JOHANNAT Neo Page MA * Patient Health Questionnaire-9 Score Answer Date of Assessment Author 5 03/21/2025 9:33 AM JOHANNAT Neo Page MA * How difficult have these problems made it for you to do your work, take care of things at home, or get along with other people? Answer Date of Assessment Author Not difficult at all 03/21/2025 9:33 AM JOHANNAT Neo Middleton MA * Over the last 2 weeks, how often have you been bothered by any of the following problems? Question Answer Date of Assessment Author Feeling nervous, anxious, or on edge 0 03/21/2025 9:34 AM EDT Neo Page MA Not being able to stop or co ntrol worrying 0 03/21/2025 9:34 AM JOHANNAT Neo Page MA Worrying too much about diff erent things 1 03/21/2025 9:34 AM JOHANNAT Neo Page MA Trouble relaxing 0 03/21/2025 9:34 AM EDT Neo Wise MA Being so restless that it is hard to sit still 0 03/21/2025 9:34 AM JOHANNAT Neo Page MA Becoming easily annoyed or irritable 1 03/21/2025 9:34 AM JOHANNAT Neo Page MA Feeling afraid as if somethi ng awful might happen 0 03/21/2025 9:34 AM Neo Mccormick MA BALBIR-7 Total Score 2 03/21/2025 9:34 AM JOHANNAT Neo Page MA documented as of this encounter Plan of Treatment Not on file documented as of this encounter Visit Diagnoses Not on filedocumented in this encounter Additional Health Concerns Assessment Noted Time PHQ-9 Depression Total Score: 5 03/21/20 25 9:33 AM EDT documented as of this encounter Care Teams Wad Lubricator Relationship Specialty Start Date End Date Rea Nieves MD [address] [place] [phone] PCP - General Family Medicine 07/15/18 documented as of this encounter
--- OUTSIDE RECORDS SUMMARY | 2025-03-21 10:27 | XMS_ITS | Encounter Summary ---
Author Organization [employer] Address [address] [facility] 7t [place] [address] Care Team Providers Care Resume Writer Name Role Phone Rea Nieves MD Primary Care Provide r Encounter Details Date Type Department Care Team (Late st Contact Info) Description 06/04/2023 Orders Only [facility] [address] [place] [address] Provider, MD Darnell Social History Tobacco Use Types Packs/Day Years [...] on file documented as of this encounter Procedures Procedure Name Priority Date/Time Associated Diagnosis Comments T4, FREE Routine 03/15/2024 10:19 AM EDT HM PAP/HPV Routine 10/01/2021 documented in this encounter Results * (ABNORMAL) T4, Free (03/15/2024 10:19 AM EDT) Free T4 (Free Thyroxine) 0.64(L) 0.71 - 1.85 ng/dL [facility] 03/15/2024 10:1 9 AM EDT 03/15/2024 11:28 AM EDT us Rea Sierra MD LAB BLOOD ORDERABLES Final Result [facility] [address] [place] [address] [phone] * Hm Pap Smear (10/01/2021) us Historical Provider HEALTH MAINTENANCE Final Result documented in this encounter Visit Diagnoses Not on filedocumented in this encounter Additional Health Concerns Assessment Noted Time PHQ-9 Depression Total Score: 0 03/13/20 10:31 AM EDT documented as of this encounter Care Teams Resume Writer Relationship Specialty Start Date End Date Rea Nieves MD [address] [place] [phone] PCP - General Family Medicine 07/15/18 documented as of this encounter
--- OUTSIDE RECORDS SUMMARY | 2025-03-21 10:27 | XMS_ITS | Encounter Summary ---
Author Organization [employer] Address [address] [facility] 7t [place] [address] Care Team Providers Care Cotton Acreage Measurer Name Role Phone Rea Nieves MD Primary Care Provide r Encounter Details Date Type Department Care Team (Late st Contact Info) Description 08/31/2024 Orders Only [facility] [address] [place] [address] ProviderDarnell MD Social History Tobacco Use Types Packs/Day Years [...] Procedure Name Priority Date/Time Associated Diagnosis Comments HM PAP/HPV Routine 05/21/2019 8:51 AM EDT documented in this encounter Results * HM PAP/HPV (05/21/2019 8:51 AM EDT) us Historical Provider HEALTH MAINTENANCE Final Result documented in this encounter Visit Diagnoses Not on filedocumented in this encounter Additional Health Concerns Assessment Noted Time PHQ-9 Depression Total Score: 0 03/15/20 24 9:32 AM EDT documented as of this encounter Care Teams Cotton Acreage Measurer Relationship Specialty Start Date End Date Rea Nieves MD [address] [place] [phone] PCP - General Family Medicine 07/15/18 documented as of this encounter
--- OUTSIDE RECORDS SUMMARY | 2025-03-21 10:27 | XMS_ITS | Encounter Summary ---
Author Organization [employer] Address [address] [facility] 7t [place] [address] Care Team Providers Care Data Processing Systems Consultant Name Role Phone Rea Nieves MD Primary Care Provide r Reason for Visit * Reason Comments Annual Exam Encounter Details Date Type Department Care Team (Latest Contact Info) Description 03/21/2025 9:15 AM EDT Office Visit [facility] [address] [place], [place] [phone] Rea Nieves MD [address] [place], [place] [phone] Vaginal itching (Primary Dx); Encounter for preventative adult health care examination; Acquired hypothyroidism Social History Tobacco Use Types Packs/Day Years [...] AM EDT documented as of this encounter Last Filed Vital Signs Vital Sign Reading Time Taken Comments Blood Pressure 111/70 03/21/2025 9:25 AM EDT Pulse 72 03/21/2025 9:25 AM EDT Temperature 36.1 ??C (97 ??F) 03/21/2025 9:25 AM EDT Respiratory Rate 18 03/21/2025 9:25 AM EDT Oxygen Saturation 98% 03/21/2025 9:25 AM EDT Inhaled Oxygen Concentration - - Weight 68.8 kg (151 lb 9.6 oz) 03/21/2025 9:25 A M EDT Height 167.6 cm (5' 6 ) 03/21/2025 9:25 AM EDT Body Mass Index 24.47 03/21/2025 9:25 AM EDT documented in this encounter Functional Status * Over the [...] Assessment Author Several days 03/21/2025 9:33 AM Neo Mccormick MA * Trouble falling or staying asleep, or sleeping too much Answer Date of Assessment Author Several days 03/21/2025 9:33 AM Neo Mccormick MA * Feeling tired or having little energy Answer Date of Assessment Author Several days 03/21/2025 9:33 AM Neo Mccormick MA * Poor appetite or overeating Answer Date of Assessment Author Several days 03/21/2025 9:33 AM Neo Mccormick MA * Feeling bad about yourself - or that you are a failure or have let yourself or your family down Answer Date of Assessment Author Not at all 03/21/2025 9:33 AM Neo Mccormick MA * Trouble concentrating on things, such as reading the newspaper or watching television Answer Date of Assessment Author Not at all 03/21/2025 9:33 AM Neo Mccormick MA * Moving or speaking so slowly that other people could have noticed? Or the opposite - being so fidgety or restless that you have been moving around a lot more than usual. Answer Date of Assessment Author Not at all 03/21/2025 9:33 AM Neo Mccormick MA * Thoughts that you would be better off or hurting yourself in some way Answer Date of Assessment Author Not at all 03/21/2025 9:33 AM Neo Mccormick MA * Patient Health Questionnaire-9 Score Answer Date of Assessment Author 5 03/21/2025 9:33 AM Neo Mccormick MA * How difficult have these problems made it for you to do your work, take care of things at home, or get along with other people? Answer Date of Assessment Author Not difficult at all 03/21/2025 9:33 AM Neo Santos MA * Over the last 2 weeks, how often have you been bothered by any of the following problems? Question Answer Date of Assessment Author Feeling nervous, anxious, or on edge 0 03/21/2025 9:34 AM Neo Mccormick MA Not being able to stop or co ntrol worrying 0 03/21/2025 9:34 AM EDT Neo Page MA Worrying too much about diff erent things 1 03/21/2025 9:34 AM EDT Neo Page MA Trouble relaxing 0 03/21/2025 9:34 AM EDT Neo Wise MA Being so restless that it is hard to sit still 0 03/21/2025 9:34 AM EDT Neo Page MA Becoming easily annoyed or irritable 1 03/21/2025 9:34 AM EDT Neo Page MA Feeling afraid as if somethi ng awful might happen 0 03/21/2025 9:34 AM EDT Neo Page MA BALBIR-7 Total Score 2 03/21/2025 9:34 AM EDT Neo Page MA documented as of this encounter Plan of Treatment Scheduled Orders Name Type Priority Associated Diagnoses Orde r Schedule TSH W/Reflex to FT4 Lab Routine Acquired hypothyroidism Expected: 03/21/2025 (Approximate), Expires: 03/21/2026 Bacterial Vaginosis Microbiology Routine Vaginal itching Ordered: 03/21/2025 documented as of this encounter Visit Diagnoses Diagnosis Vaginal itching- Primary Pruritus of genital organs Encounter for preventative adult health care examination Acquired hypothyroidism Unspecified hypothyroidism documented in this encounter Additional Health Concerns Assessment Noted Time PHQ-9 Depression Total Score: 5 03/21/20 25 9:33 AM EDT documented as of this encounter Care Teams Data Processing Systems Consultant Relationship Specialty Start Date End Date Rea Nieves MD [address] [place] [phone] PCP - General Family Medicine 07/15/18 documented as of this encounter
--- OUTSIDE RECORDS SUMMARY | 2025-03-21 10:27 | XMS_ITS | Clinical Summary ---
Author Organization [employer] Address [address] [place] [address] 7t [place] [address] Care Team Providers Care Complex Case Manager Name Role Phone Rea Nieves MD Primary Care Provide r Allergies No known active allergies Medications cholecalciferol (Vitamin D-3) 50 MCG (1999 UT) capsule Take 1 capsule (50 mcg) by mouth in the morning. 30 capsule 11 3 Active famotidine (Pepcid) 20 MG tabletIndications: Epigastric pain Take 1 tablet (20 mg) by mouth 2 times daily. 60 tablet 11 3 Active ibuprofen 800 MG tabletIndications: Pain TAKE 1 TABLET BY MOUTH THREE TIMES DAILY WITH FOOD 30 tablet 3 Active cyclobenzaprine (Flexeril) 10 MG tabletIndications: Chronic midline low back pain, unspecified whether sciatica present Take 1 tablet (10 mg) by mouth at bedtime. 30 tablet 1 4 Active levothyroxine (Synthroid, Levoxyl) 112 MCG tabletIndications: Acquired hypothyroidism TAKE 1 TABLET BY MOUTH EVERY DAY BEFORE BREAKFAST 90 tablet 1 5 Active Active Problems Problem Noted Date Diagnosed Date Vaginal itching 03/21/2025 Chronic low back pain 03/13/2023 Assessment & Plan (03/15/2024 10:06 AM EDT): Apply heat on affected area Acetaminophen PRN Flexeril at bed time if needed (patient is aware of side effect somnolence) Patient instructed to reports back if problem is worse Kidney stone 03/13/2023 Myopia, bilateral 03/13/2023 Epigastric pain 03/13/2023 Assessment & Plan (03/14/2023 4:19 PM EDT): I advise patient to avoid NSAIDs, spicy and acid food, I advise to eat at the same time every day, I advise to elevate the head of the bed and take medications as prescribe I will check for H pylori Encounter for preventative adult health care exa mination 03/13/2023 Assessment & Plan (03/15/2024 10:05 AM EDT): See HPI Assessment & Plan (03/14/2023 4:19 PM EDT): Please refer to [facility] Hyperthyroidism 01/27/2023 Overview (01/27/2023): Pt chart states Hypothyroid and also Hyperthyroid Anemia 01/06/2018 Vitamin D deficiency 01/06/2018 Acquired hypothyroidism 01/06/2018 Assessment & Plan (03/15/2024 10:06 AM EDT): TSH will be check Assessment & Plan (03/14/2023 4:19 PM EDT): TSH will be re-check soon medication to be adjusted accordingly Encounters Date Type Department Care Team Description 03/21/2025 9:15 AM EDT Office Visit [facility] [address] [place] [phone] Rea Nieves MD Vaginal itching (Primary Dx); Encounter for preventative adult health care examination; Acquired hypothyroidism 03/21/2025 Travel 03/18/2025 Telephone [facility] [address] [place], [place] [phone] Rea Nieves MD Chart Prep 03/14/2025 Patient Outreach [facility] [address] [place], [place] [phone] Rea Nieves MD Pre-visit Planning ((Unable to reach for PVP screening, LVM)) 02/28/2025 Outside Procedure [facility] [address] [place], [place] [phone] Yeison, Barbie, OD Myopia, bilateral (Primary Dx); Regular astigmatism of both eyes 01/18/2025 1:30 PM EDT Office Visit [facility] [address] [place] [address] Barbie Latham, OD Myopia, bilateral (Primary Dx); Regular astigmatism of both eyes 01/18/2025 Travel 01/14/2025 Population Health Risk Score [facility] () [address] [phone] Provider, Population Health Generic 01/06/2025 3:30 PM EST Office Visit [facility] [address] [place] [address] Barbie Latham, OD Myopia, bilateral (Primary Dx); Regular astigmatism of both eyes 01/06/2025 Travel from Last 3 Months Immunizations Immunization Administration Dates Next Due DTP 09/26/1999, 6,1995,08/01,1995 HPV, Quadrivalent 01/19/2008,09/09/2007,07/10/20 07 Hep B, Adolescent or Pediatric 1995,1994,1995 Hib (HbOC) 10/15/1996, 5,1995,05/29 IPV 09/26/1999 Influenza injectable quadriv alent IIV4 with preservative 07/27/2018,10/10/2017 Influenza injectable quadriv alent preservative free 08/11/2015 Influenza, IIV3, injectable 08/30/2010 Influenza, Split (incl. ivone fied surface antigen) 07/22/2013,08/20/2012 MMR 09/26/1999,04/22/1996 Meningococcal MCV4P ACYW-135 05/14/2012,07/10/20 07 OPV, Trivalent 1995,1995,1995 TD (adult), 2 Lf tetanus tox oid, preservative free, adsorbed 10/10/2017 Tdap 01/08/2021,06/17/2018,08/14/2006 Social History Tobacco Use Types Packs/Day Years Used Date Smoking Tobacco: Never Passive Smoke Exposure: Never Smokeless Tobacco: Never Tobacco Cessation:Counseling Given: Not Answered Alcohol Use Standard Drinks/Week Comments Never 0 [...] Orientation Straight 09/02/2022 10 :14 AM EDT Last Filed Vital Signs Vital Sign Reading [...] Mass Index 24.47 03/21/2025 9:25 AM EDT Plan of Treatment Health Maintenance Due Date Last Done Comments HIV Screening 1995 Alcohol/Substance Use Screening 2007 Family Planning (PISQ) 2010 HPV/Cotest 10/01/2022 09/20/2020, 05/21/2019 Pap Smear 10/01/2022 10/01/2021, 09/03, 05/21/2019 COVID-19 Vaccine ( season) 2024 07/03/2021, 06/12/2021 Influenza Vaccine (#1) 2024 8, 10/10/2017, 08/11/2015, Additional history exists Depression Screening 03/21/2026 03/21/2025, 03/21/20 25 Disability Screening 03/21/2026 03/21/2025 SDOH Screening 03/21/2026 03/21/2025 Tobacco Screening 03/21/2026 03/21/2025 DTaP/Tdap/Td Vaccines (10 - Td or Tdap) 01/08/2031 01/08/2021, 06/17/2018, 10/10/2017, Additional history exists Zoster Vaccines (1 of 2) 2045 RSV Patients and Patients Aged 60 years or older (1 - 1-dose 75+ series) 2070 Hepatitis B Vaccines Completed 1995, 1995, 1995 HIB Vaccines Completed 10/15/1996, 03/1995, 1995, Additional history exists IPV Vaccines Completed 09/26/1999, 03/1995, 1995, Additional history exists HPV Vaccines Completed 01/19/2008, 05/2007, 07/10/2007 Meningococcal Vaccine Completed 05/14/2012, 007 Hepatitis C Screening Completed 03/15/2024 Hepatitis A Vaccines Aged Out No long er eligible based on patient's age to complete this topic Meningococcal B Vaccine Aged Out No l onger eligible based on patient's age to complete this topic Pneumococcal Vaccine: Pediatrics (0 to 5 Years) and At-Risk Patients (6 to 49) Years) Aged Out No longer eligible based on patient's age to complete this topic RSV under 20 months Aged Out No longe r eligible based on patient's age to complete this topic Rotavirus Vaccines Aged Out No longer eligible based on patient's age to complete this topic Procedures Procedure Name Priority Date/Time Associated Diagnosis Comments HEPATITIS C AB W/REFL TO HCV RNA, QN, PCR Routine 03/15/2024 10:19 AM EDT Encounter for preventative adult health care examination PAP/HPV Routine 10/01/2021 PAP/HPV Routine 09/20/2020 from Last 3 Months or Most Recently Relevant to Health Maintenance Results * Hepatitis C Antibody with Reflex to HCV, RNA, Quantitative, Real-Time PCR (03/15/2024 10:19 AM EDT) Hepatitis C Antibody Nonreactive Nonreactive [facility] Comment:Antibodies to HCV no t detected; does not exclude early acuteHCV infection. Blood Venous blood specimen / Unknown 03/15/2024 10:19 AM EDT 03/15/2024 11:28 AM EDT Rea Sierra MD LAB BLOOD ORDERABLES Final Result [facility] [address] [place] [phone] * Pap Smear (10/01/2021) Only the most recent of2 resultswithin the time period is included. us Darnell Provider HEALTH MAINTENANCE Final Result from Last 3 Months or Most Recently Relevant to Health Maintenance Insurance [facility] C3 Care Teams Complex Case Manager Relationship Specialty Start Date End Date Rea Nieves MD [address] [place] [phone] PCP - General Family Medicine 07/15/18
--- OUTSIDE RECORDS SUMMARY | 2025-03-21 10:27 | XMS_ITS | Encounter Summary ---
Author Organization [employer] Address [address] [facility] 7t [place] [address] Care Team Providers Care Ivf Embryologist Name Role Phone Rea Nieves MD Primary Care Provide r Encounter Details Date Type Department Care Team ([facility] st Contact Info) Description 03/18/2024 Orders Only [facility] [address] [place], [place] [phone] Rea Nieves MD [address] [place] [address] Social History Tobacco Use Types Packs/Day Years [...] documented as of this encounter Care Teams Ivf Embryologist Relationship Specialty Start Date End Date Rea Nieves MD [address] [place] [phone] PCP - General Family Medicine 07/15/18 documented as of this encounter
[2025-03-21 12:03] LABS: TSH reflex Free T4 2.09 uIU/mL (0.32-4.0)
[2025-03-21 18:14] LABS: Bacterial Vaginosis PCR POSITIVE (Negative); Candida Group PCR DETECTED (Not Detect); Candida glab krusei PCR NOT DETECTED (Not Detect); Trichomonas vaginalis PCR NOT DETECTED (Not Detect)
== END 2025-03-21 10:01 | disposition home or self-care (01) ==
LOC: HO.HHCL 10:00
PROVIDERS: Visit Provider Internal Medicine
DX: E03.9 Hypothyroidism, unspecified (principal); N89.8 Other specified noninflammatory disorders of vagina
CPT/HCPCS: 36415; 81515; 84443